=== PATIENT | female | born 1995 | race Asian ===

== ENCOUNTER 2024-11-29 06:47 | Outpatient (REF) | payer OTHER, SELFPAY ==
--- NOTE | ~2024-11-29 | US_ITS ---
CLINICAL HISTORY: PROLONGED PERIODS BLEEDING LASTING 10-14 DAYS US pelvis transvaginal and transabdominal Comparison: None provided Findings: The uterus is normal in size, measuring 7.7 cm in length. The endometrial stripe is normal in thickness at 0.1 cm. Couple uterine masses are present: 2.5 x 2.3 x 2.6 cm posterior intramural and 1.9 x 1.7 x 1.7 cm fundal intramural. The right ovary measures 3.5 x 1.9 x 2.7 cm. The left ovary measures 3.1 x 2.1 x 1.5 cm. 1.5 cm right ovarian follicular cyst is present. Small amount of free fluid is seen in the cul-de-sac. IMPRESSION: 1. 2.5 cm and 1.9 cm intramural uterine fibroids. 2. Small amount of free fluid in the cul-de-sac. This document has been electronically signed by: Mei Antony on 11/30/2024 08:23:37
== END 2024-11-29 06:48 | disposition home or self-care (01) ==
LOC: HO.UMASIMG 06:47
PROVIDERS: Visit Provider Nurse Practitioner Women's Health
DX: N92.6 Irregular menstruation, unspecified (principal)
CPT/HCPCS: 76830; 76856

== ENCOUNTER → 2024-11-29 10:30 | Outpatient (BNV) | payer OTHER, SELFPAY | PROVIDERS: Visit Provider Radiology Vascular & Interventional Radiology | DX: D25.1 Intramural leiomyoma of uterus (principal); R18.8 Other ascites | CPT/HCPCS: 76830; 76856 ==

== ENCOUNTER 2025-02-09 06:39 | Outpatient (REF) | payer OTHER, SELFPAY ==
--- NOTE | ~2025-02-09 | US_ITS ---
EXAMINATION: US PELVIS, COMPLETE CLINICAL INFORMATION: LONG STRING ON EXAM, CHECK IUD COMPARISON: Ultrasound 11/29/2024 TECHNIQUE: Transabdominal and transvaginal imaging was performed. FINDINGS: LMP: 12/2024. IUD present Uterus is retroverted and retroflexed , measuring 7.2 x 5.2 x 4.8 cm. There are 2 intrauterine uterine masses in the fundus measuring 2.5 x 2.4 x 2 cm, ( previous maximum measurement 2.6 cm) and measuring 1.8 x 1.7 x 1.3 cm (previous maximal measurement 1.9 cm). Endometrial stripe measures 0.4 cm. The IUD appears appropriately positioned in the endometrial canal. Right ovary measures 3.1 x 1.9 x 1.7 cm. Volume 5.2 mL. Left ovary measures 3.1 x 2.5 x 1.7 cm. Volume 6.9 mL. Bilateral ovaries appear unremarkable. No free fluid in the cul-de-sac. US/US pelvic and transvaginal IMPRESSION: * IUD appears appropriately positioned in the endometrial canal. * Stable 2.5 and 1.8 cm intramural uterine fibroids. Electronically signed by: Fausto Arizmendi MD 02/10/2025 09:27 AM EST
== END 2025-02-09 06:40 | disposition home or self-care (01) ==
LOC: HO.UMASIMG 06:39
PROVIDERS: Visit Provider Nurse Practitioner Women's Health
DX: Z30.431 Encounter for routine checking of intrauterine contraceptive device (principal); T83.32XA Displacement of intrauterine contraceptive device, initial encounter
CPT/HCPCS: 76830; 76856

== ENCOUNTER → 2025-02-09 14:31 | Outpatient (BNV) | payer OTHER, SELFPAY | PROVIDERS: Visit Provider Radiology Diagnostic Ultrasound | DX: D25.9 Leiomyoma of uterus, unspecified (principal); Z30.431 Encounter for routine checking of intrauterine contraceptive device | CPT/HCPCS: 76830; 76856 ==